=== PATIENT | female | born 1990 | race Caucasian/White ===

== ENCOUNTER 2021-12-10 20:52 | Emergency (ER) | payer MEDICAID ==
[~2021-12-10] VITALS: Ht 167.6 cm; Wt 96.2 kg
[~2021-12-10 20:52] MED LIST: PREN-13 PO
[2021-12-10 21:20] VITALS: BP 137/84
[2021-12-10 22:22] LABS: APPEARANCE,URINE CLEAR (CLEAR); BILIRUBIN,URINE NEGATIVE (NEGATIVE); BLOOD, URINE NEGATIVE (NEGATIVE); COLOR,URINE YELLOW (YELLOW); LEUKOCYTE ESTERASE ,URINE NEGATIVE (NEGATIVE); NITRITE, URINE NEGATIVE (NEGATIVE); UGLUCOSE NEGATIVE (NEGATIVE)
[2021-12-10 22:52] LABS: ALBUMIN 3.5 g/dL (3.4-5.0); ANION GAP 13.3 (8-16); CARBON DIOXIDE 24.7 mmol/L (21-32); CREATININE 0.6 mg/dL (0.6-1.3); TOTAL BILIRUBIN 0.7 mg/dL (0.0-1.0)
[2021-12-10 23:07] LABS: BASOPHILS % (AUTO) 0.4 % (0.0-2.0); EOSINOPHILS # (AUTO) 0.1 K/uL (0-0.4); EOSINOPHILS % (AUTO) 1.2 % (0.0-4.0); HEMATOCRIT 36.5 % (36-48); HEMOGLOBIN 12.9 g/dL (12.0-16.0); LYMPHOCYTES # (AUTO) 2.7 K/uL (2.5-16.5); LYMPHOCYTES % (AUTO) 26.9 % (20.5-51.1); MEAN CORPUSCULAR HEMOGLOBIN 31 pg (27-31); MEAN CORPUSCULAR HGB CONC 35 g/dL (33-37); MONOCYTES # (AUTO) 0.6 K/uL (0.8-1.0); MONOCYTES % (AUTO) 6.4 % (1.7-9.3); NEUTROPHILS # (AUTO) 6.5 K/uL (1.8-7.7); NEUTROPHILS % (AUTO) 65.1 % (42.2-75.2); PLATELET COUNT (AUTO) 260 K/uL (140-450); RED BLOOD CELL COUNT(AUTO) 4.11 MIL/uL (4.20-5.40); RED CELL DISTRIBUTION WIDTH 13.3 % (11.6-13.7); WHITE BLOOD COUNT (AUTO) 9.9 K/uL (4.8-10.8)
--- NOTE | 2021-12-10 23:48 | NUR ---
PT AMBULATED TO BED #9
--- NOTE | 2021-12-10 23:54 | NUR ---
31/F BIB SELF C/O ABD PAIN [id number]. PER PATIENT SHES BEEN HAVING SHARP ABN PAIN 8/10 NON RAD, THAT EXACERBATES WHEN SHE MOVES, EATS CHILI OR GREASE. SHE ALSO C/O N/V/LACK OF APPET. PATIENT DENIES TAKING MEDS TO RELIEF PAIN FOR THE LAST MONTH, D/C/URINARY SYMPTOMS. STATED THAT HER LAST PERIOD WAS 3 MONTHS AGO. PATIENT IS GUARDING ABD. RR APPEAR TO BE EVEN AND UNLABORED. PATIENT PLACED IN BED 9 AND PLACED ON THE MONITOR. BED LOW AND LOCKED. PATSY SIDE RAILS UP FOR SAFETY. ALL NEEDS MET. LMP X3MTHS AGO DENIES PMHX, RX NKA
--- NOTE | 2021-12-11 00:10 | NUR ---
DR. TRAYLOR AT BEDSIDE FOR EVALUATION
--- NOTE | 2021-12-11 01:30 | NUR ---
PT AMBULATED TO RR
--- NOTE | 2021-12-11 01:35 | NUR ---
Female Java User Interface Developer accompanied female patient for Ultrasound.
--- NOTE | 2021-12-11 01:35 | NUR ---
Patient being evaluated by physician at bedside.
[2021-12-11 01:49] VITALS: BP 127/70
[2021-12-11] MEDS ORDERED: PREN-371 PO (01:51)
== END 2021-12-11 02:00 | disposition home or self-care (01) ==
LOC: MED 20:52
DX: O20.0 Threatened abortion (principal); Z79.899 Other long term (current) drug therapy; Z98.890 Other specified postprocedural states
CPT/HCPCS: 36415; 80053; 81002; 81003; 81025; 83690; 84702; 85025; 86900; 86901; 99284

== ENCOUNTER 2022-06-27 04:30 | Observation (INO) | payer MEDICAID, OTHER ==
[~2022-06-27] VITALS: Ht 160 cm; Wt 104.3 kg
[~2022-06-27 04:30] MED LIST changes: +PREN-371 PO
[2022-06-27] MEDS ORDERED: LACTATED RINGERS 500 ML IV SCH (04:55)
[2022-06-27] MEDS ORDERED: LACTATED RINGERS 1,000 ML IV SCH (04:55)
[2022-06-27 05:04] VITALS: BP 116/63
[2022-06-27 05:34] LABS: APPEARANCE,URINE CLEAR (CLEAR); BILIRUBIN,URINE NEGATIVE (NEGATIVE); BLOOD, URINE NEGATIVE (NEGATIVE); COLOR,URINE YELLOW (YELLOW); LEUKOCYTE ESTERASE ,URINE 1+ (NEGATIVE); NITRITE, URINE NEGATIVE (NEGATIVE); UGLUCOSE NEGATIVE (NEGATIVE)
[2022-06-27 05:36] LABS: BASOPHILS % (AUTO) 0.4 % (0.0-2.0); EOSINOPHILS # (AUTO) 0.1 K/uL (0-0.4); EOSINOPHILS % (AUTO) 1.1 % (0.0-4.0); HEMATOCRIT 32.3 % (36-48); HEMOGLOBIN 11.5 g/dL (12.0-16.0); LYMPHOCYTES # (AUTO) 2.6 K/uL (2.5-16.5); LYMPHOCYTES % (AUTO) 27.7 % (20.5-51.1); MEAN CORPUSCULAR HEMOGLOBIN 32 pg (27-31); MEAN CORPUSCULAR HGB CONC 36 g/dL (33-37); MEAN CORPUSCULAR VOLUME 88.8 fL (80-94); MONOCYTES # (AUTO) 0.6 K/uL (0.8-1.0); NEUTROPHILS % (AUTO) 64.8 % (42.2-75.2); PLATELET COUNT (AUTO) 267 K/uL (140-450); RED BLOOD CELL COUNT(AUTO) 3.64 MIL/uL (4.20-5.40); RED CELL DISTRIBUTION WIDTH 15.1 % (11.6-13.7); WHITE BLOOD COUNT (AUTO) 9.3 K/uL (4.8-10.8)
[2022-06-27] MEDS ORDERED: TERBUTALINE 1 MG/ML VIAL SUBQ SCH (05:40)
[2022-06-27] MEDS ORDERED: TERBUTALINE 1 MG/ML VIAL SUBQ ONE (05:45)
[2022-06-27 05:51] LABS: ALBUMIN 3.1 g/dL (3.4-5.0); ANION GAP 14.9 (8-16); CARBON DIOXIDE 19.6 mmol/L (21-32); CREATININE 0.6 mg/dL (0.6-1.3); POTASSIUM 3.5 mmol/L (3.5-5.1); TOTAL BILIRUBIN 0.5 mg/dL (0.0-1.0)
[2022-06-27 05:59] LABS: BARBITURATE, URINE NEGATIVE ng/ml (NEG <=200); BENZODIAZEPINE, URINE NEGATIVE ng/mL (NEG <=200); CANNABINOID, URINE NEGATIVE ng/mL (NEG <=50); COCAINE, URINE NEGATIVE ng/mL (NEG <=300); OPIATE, URINE NEGATIVE ng/mL (NEG <=2000); PHENCYCLIDINE SCREEN,URINE NEGATIVE ng/mL (NEG <=25); RBC,URINE 0-5 /HPF (0-5); WBC,URINE 0-5 /HPF (0-5)
[2022-06-27 07:10] LABS: PROTHROMBIN TIME 9.4 secs (10.8-13.4)
[2022-06-27] MEDS ORDERED: HYDROmorphone PFS 2 MG/ML SYR ONE (08:37)
[2022-06-27] MEDS ORDERED: ROCURONIUM 50 MG/5 ML VIAL IV ONE (08:37)
--- NOTE | 2022-06-27 09:13 | NUR ---
PATIENT HAS BEEN SCREENED AND CATEGORIZED LOW NUTRITION RISK. PATIENT WILL BE SEEN WITHIN 7 DAYS OF ADMISSION. 06/27/22-07/04/[address]
== END 2022-06-27 08:50 | disposition home or self-care (01) ==
LOC: MLD 04:30
PROVIDERS: ADMIT Obstetrics & Gynecology; ATTEND Obstetrics & Gynecology
DX: O62.9 Abnormality of forces of labor, unspecified (principal); Z20.822 Contact with and (suspected) exposure to COVID-19; Z3A.41 41 weeks gestation of pregnancy
CPT/HCPCS: 36415; 80053; 80305; 81001; 85025; 85610; 85730; 86592; 86703; 86762; 86886; 86900; 86901; 87086; 87340; 87426; 96360; 96361; 96372; G0378; G0379; J3105; J7120; J1170; J3490

== ENCOUNTER 2024-03-16 15:16 | Emergency (ER) | payer OTHER ==
[~2024-03-16] VITALS: Ht 162.6 cm; Wt 106.6 kg
[~2024-03-16 15:16] MED LIST changes: -PREN-371 PO
[2024-03-16 15:24] VITALS: BP 127/89; PULSE 79; RESP 20; TEMP 98.1; O2SAT 100
[2024-03-16 15:30] VITALS: O2SAT 100
== END 2024-03-16 16:17 | disposition home or self-care (01) ==
LOC: MED 15:16
DX: K62.5 Hemorrhage of anus and rectum (principal)
CPT/HCPCS: 99281